=== PATIENT | female | born 1990 | race Caucasian/White ===

== ENCOUNTER → 2021-02-21 07:59 | Outpatient (BNVA) | payer BC, SELFPAY | PROVIDERS: Family Provider Family Medicine; PCP Family Medicine; Visit Provider Obstetrics & Gynecology | DX: Z30.2 Encounter for sterilization (principal); Z20.822 Contact with and (suspected) exposure to COVID-19 | CPT/HCPCS: 87635 ==

== ENCOUNTER 2021-02-27 07:13 | Day surgery (SDC) | payer BC, SELFPAY ==
[2021-02-26 12:46] VITALS: BMI 21.6
[2021-02-26 12:53] VITALS: BMI 45.6
[2021-02-27] VITALS (8 sets, daily range): BP systolic 119–165; BP diastolic 54–100; PULSE 80–100; RESP 13–22; TEMP 36.1–36.9; O2SAT 96–99
[2021-02-27] MEDS: sodium chloride 0.9% 500 ML IV (07:46)
[2021-02-27] MEDS: scopolamine 1.5 Patch 1 PATCH TRANSDERMA (07:49)
[2021-02-27 08:04] LABS: Basophils % 0.3 %; Eosinophils % 0.5 %; Hematocrit 39.3 % (37.0-47.0); Hemoglobin 12.7 g/dL (11.5-15.3); Lymphocytes # 1.6 10^3/uL (0.8-4.8); Lymphocytes % 26.1 %; Mean Corpuscular HGB Conc 32.3 g/dL (30.0-36.0); Mean Corpuscular Hemoglobin 26.2 pg (28.0-34.0); Mean Corpuscular Volume 81.2 fL (81-99); Mean Platelet Volume 10.8 fL (7.4-10.4); Monocytes # 0.6 10^3/uL (0.2-0.9); Monocytes % 9.1 %; Neutrophils # 3.99 10^3/uL (1.8-7.7); Neutrophils % 63.8 %; Nucleated Red Blood Cells % 0 %; Platelet Count 284 10^3/cmm (130-400); Red Blood Count 4.84 10^6/uL (4.1-5.3); Red Cell Distribution Width 13.5 % (12.1-15.1); White Blood Count 6.3 10^3/uL (4.0-10.0)
--- NOTE | 2021-02-27 08:10 | P.ANESASSM_ITS ---
Pre-Anesthetic Assessment Pre-Anesthetic Assessment: Height/Weight: Height 1.73 m Weight 136.078 kg Temp Pulse Resp BP Pulse Ox 97.1 F L 90 18 164/100 99 02/27/21 07:27 02/27/21 07:27 02/27/21 07:27 02/27/21 07:27 02/27/21 07:27 Preop Diagnosis: Desire permanent sterilization Proposed Procedure: Operation Date: 02/27/21 08:45 Proposed Procedures p Laparoscopic bilateral Salpingectomy 54900 z30.2(Bilateral) - Angelo Waldrop MD Familial anesthetic complications: None Was Beta Alexandra taken within 24 hours: N/A Was Clonidine taken within 24 hours: N/A Last intake: Intake Last Liquid Date 03/13/21 Last Liquid Time 21:30 Last Solid Date 02/26/21 Last Solid Time 18:30 Social: Social History: No alcohol and No tobacco Exam: Pre-Anes Outpt Exam: alert, oriented x 3, clear to auscultation bilat erally and regular rate & rhythm Airway: Cervical ROM: WNL MP: 4 Dentition: Other (2 missing) A dditional comments: small mouth Metabolic: Metabolic: Morbid obesity Anesthetic Plan: ASA status: 1 Anesthesia: General Risk of > 500 ml blood loss (7ml/kg in children): No Meds/Allergies Current Medications: Current Medications Generic Name Dose Route Start Last Admin Trade Name Freq PRN Reason Stop Dose Admin Sodium Chloride 500 mls @ 500 mls /hr 02/27/21 07:18 02/27/21 07:46 Sodium Chloride 0.9% IV 02/27/21 08:17 500 mls/hr ONCE ONE Administration PFSH Anesthesia PFSH: Family History (Updated 01/15/21 @ 07:59 by Chandni Contreras RN) Family/Other Diabetes maternal uncle Father Hypertension Grandfather Colon cancer maternal, 60's Denies family history of Ovarian cancer Clotting disorder Heart disease Hyperlipidemia Breast cancer Anesthesia complication Bleeding disorder Uterine cancer Thyroid condition Stroke Social History (Updated 02/25/21 @ 07:53 by Corin Ku) Smoking and tobacco status: never smoked Alcohol intake: never Data Anesthesia CBC & Chem 7: 02/27/21 07:48 02/27/21 07:48 Other Labs: Laboratory Results - last 48 hr 02/27/21 07:48 WBC 6.3 RBC 4.84 Hgb 12.7 Hct 39.3 MCV 81.2 MCH 26.2 L MCHC 32.3 RDW 13.5 Plt Count 284 MPV 10.8 H Neut % (Auto) 63.8 Lymph % (Auto) 26.1 [place] % (Auto) 9.1 Eos % (Auto) 0.5 Baso % (Auto) 0.3 Neut # (Auto) 3.99 Lymph # (Auto) 1.6 [place] # (Auto) 0.6 Eos # (Auto) 0.0 Baso # (Auto) 0.0 Nucleated RBC % (auto) 0 Nucleated RBCs # 0.0 Cardiac Studies: No Data to Display
--- NOTE | 2021-02-27 08:17 | W.PM.OPSUD ---
Surgery/Procedure H&P Update DATE OF PROCEDURE: February 27, 2021 DATE H&P PERFORMED: 02/25/21 H&P UPDATE INFORMATION: I have reviewed H&P completed within last 30 days, I have examined patient prior to procedure and No changes to prior documentation PREOP DIAGNOSIS: Desire permanent sterilization PLANNED PROCEDURE: Operation Date: 02/27/21 08:45 Proposed Procedures p Laparoscopic bilateral Salpingectomy 80314 z30.2(Bilateral) - Angelo Waldrop MD
[2021-02-27 08:20] LABS: Anion Gap 14.1 (5-19); Blood Urea Nitrogen 8 mg/dL (6-20); Carbon Dioxide 24 mmol/L (22-29); Chloride 104 mmol/L (98-107); Glomerular Filtration Rate 118.2 mL/min (90-130); Glucose 109 mg/dL (65-115); Osmolality Calculated 285 mOsm/kg (285-295); Potassium 4.1 mmol/L (3.5-5.1); Sodium 138 mmol/L (136-145)
[2021-02-27 08:22] LABS: OR HCG Qualitative Urine Negative (Negative)
[2021-02-27 09:07] LABS: Add Urine Microscopic? NO; Charge for UA Resulting for Rev
[2021-02-27 09:57] LABS: Bilirubin Urine Neg (Negative); Blood Urine Neg (Negative); Glucose Urine UA Norm (Normal); Ketones Urine Negative (Negative); Leukocyte Esterase Urine Negative (Negative); Nitrate Urine Negative (Negative); Protein Urine Neg (Negative); Sulfosalicylic Acid Urine Negative (Negative); Urine Appearance Clear (CLEAR); Urine Color Yellow (Yellow); Urobilinogen Urine Norm (Negative); pH Urine 8 (5-7)
--- NOTE | 2021-02-27 10:02 | PM.OP ---
Operative Report Date of procedure: February 27, 2021 Pre-op Diagnosis: Desire permanent sterilization Post-op diagnosis: same Procedure Done: Laparoscopic bilateral salpingectomy. Implants: None Specimens removed/disposition: left and right fallopian tubes Pathology: Left and right fallopian tubes Surgeon: Angelo Waldrop MD Estimated blood loss (mL): 5 IV fluids (mL): 900 Urine output (mL): 100 Complications: None Condition: stable Disposition: PACU Brief History: 30-year-old female desires permanent sterilization Procedure: After informed consent, the patient was taken to the operating room where general anesthesia was administered. She was placed in the dorsal lithotomy position and prepped and draped in sterile fashion. Pre-Procedure Time-Out verifying the correct patient identity, correct procedure verified with consent, correct site and side, correct patient position, availability of correct implants and any special equipment or requirements was performed and acknowledge by the OR team. The patient was examined under anesthesia and found to have a normal uterus with normal adnexa. A weighted speculum was placed in the vagina, and the anterior lip of cervix was grasped with the single toothed tenaculum. A uterine manipulator was advanced into the endocervical canal and uterus. The tenaculum was removed after uterine manipulator was secured. The speculum was removed from the vagina. An intraumbilical incision was made with a scalpel. While tenting up on the abdomen, a Verres needle was admitted into the intra-abdominal cavity. A saline drop test was performed and noted to be within normal limits. But pneumoperitoneum was not attained and an extra long octiview trocar was used to attained a pneumoperitoneum with 4 liters of carbon dioxide. The extralong 5 mm Opitc view trocar and sleeve were admitted into the abdomen and laparoscopic confirmation of location was achieved. A second incision was made 3 cm above the symphysis pubis, and a 5 mm trocar sleeves were admitted into the abdomen under direct laparoscopic visualization without complication. A survey revealed normal abdominal anatomy with the exception of string adhesion to the right lower anterior abdominal wall. A 5 mm blunt probe was advanced through the second trocar sleeve, and light manipulation of ovaries and uterus to assess the posterior aspects was performed. The pelvic survey shows normal uterus, left and right adnexa. The left ovary was noted with a follicular cyst. The string adhesion was fulgurated and transected with good hemostasis with the Voyant. The patient was placed into Trendelenburg position. The fallopian tubes were inspected bilaterally and the fimbriated ends of the fallopian tubes were visualized bilaterally. Attention was then directed to the right side. The fallopian tube and mesosalpinx were grasped and the underlying mesosalpinx was cauterized and cut using the Voyant device. Serial cauterization and cutting was used to separate the fallopian tube from the underlying mesosalpinx until it could be amputated cutting it approximated 2 cm from the cornua. Attention was then turned to the contralateral fallopian tube, which was removed in similar fashion. Both specimens were removed through the trocar and sent to pathology. But right tube specimen was trap in the adipose tissue was it got trap in the trocar and the in adipose tissue while pulling the trocar the suprapubic trocar incision was extended to withdraw the right fallopian tube from adipose tissue. Then the instruments were removed. The suprapubic trocar port was removed under direct visualization insuring good .hemostasis. The carbon dioxide was allowed to escape from the abdomen. The intraumbilical trocar sleeve was withdrawn under visualization with laparoscope in the sleeve to insure hemostasis. The skin incisions were closed with 3-O Monocryl subcuticular stich and Dermabond. The instruments were removed from the vagina, and excellent hemostasis was noted. The patient tolerated the procedure well, and sponge, lap and needle count were correct times two. The patient was taken to the recovery room in good condition.
[2021-02-27] MEDS: HYDROcodone-acetaminophen 5-325 mg Tablet 1 TAB PO (11:12)
--- NOTE | 2021-02-27 16:25 | ANE.PACU2 ---
Inpatient post-anesthesia follow up: Airway intact: Yes Vital signs: Temperature 98.4 F Pulse Rate 100 Respiratory Rate 18 Blood Pressure 161/91 Pulse Oximetry 98 Oxygen Delivery Me thod Room Air Oxygen Flow Rate 8 Fraction of Inspir ed Oxygen Hydration adequate: Yes Nausea and vomiting: No Pain level: 2 Mental status: Baseline
== END 2021-02-27 11:48 | disposition home or self-care (01) ==
PROVIDERS: PCP Family Medicine; Visit Provider Obstetrics & Gynecology
PROC: (CPT 58661; principal; 2021-02-27 08:45)
DX: Z30.2 Encounter for sterilization (principal); E66.01 Morbid (severe) obesity due to excess calories; Z68.42 Body mass index [BMI] 45.0-49.9, adult; Z82.49 Family history of ischemic heart disease and other diseases of the circulatory system; Z83.3 Family history of diabetes mellitus
CPT/HCPCS: 58661; 36415; 80048; 81003; 81025; 84703; 85025; 86850; 86900; 88302; 96365; J0360; J0690; J1100; J1200; J1885; J2250; J2405; J2704; J2710; J3010; J3490; J7040

== ENCOUNTER 2024-01-13 07:26 | Emergency (ER) | payer BC, SELFPAY ==
--- NOTE | 2024-01-13 07:34 | CTR_ITS ---
PROCEDURE INFORMATION: Exam: CT Head Without Contrast Exam date and time: 01/13/2024 7:36 AM Age: 33 years old Clinical indication: Stroke-like symptoms; Left facial droop; Additional info: Symptoms of acute stroke TECHNIQUE: Imaging protocol: Computed tomography of the head without contrast. Radiation optimization: All CT scans at this facility use at least one of these dose optimization techniques: automated exposure control; mA and/or kV adjustment per patient size (includes targeted exams where dose is matched to clinical indication); or iterative reconstruction. Other technique: STROKE PROTOCOL was implemented. COMPARISON: No relevant prior studies available. RADIATION DOSE METRICS: Total DLP (mGy-cm): 1068.23 FINDINGS: Brain: Normal. No hemorrhage. Unremarkable white matter. No mass effect. Cerebral ventricles: No ventriculomegaly. Paranasal sinuses: Visualized sinuses are unremarkable. No fluid levels. Mastoid air cells: Visualized mastoid air cells are well aerated. Bones: Unremarkable. No acute fracture. Soft tissues: Unremarkable. CT/CT head thrombolytic 76760 IMPRESSION: No acute intracranial abnormality. ASSESSMENT: ASPECTS ([place] Stroke Program Early CT Score) is 10. .
--- NOTE | 2024-01-13 07:34 | ECG_ITS ---
[facility] Test Date: 2024-01-13 Pat Name: Osiris Pisano Department: Room: Gender: Female [employer]pper: : 1990 Requested By: Eddie Gutierrez Order Number: [id number] Tadeo MD: Jamal Waddell M.D. Measurements Intervals [place] Rate: 85 P: 34 NE: 154 QRS: 44 QRSD: 92 T: 34 QT: 330 QTc: 394 Interpretive Statements SINUS RHYTHM No previous ECG available for comparison Electronically Signed On 01-15-2024 13:26:59 CDT by Jamal Waddell M.D. [email or web address]
[2024-01-13 07:36] LABS: Glucose Point of Care 119 mg/dL (70-110)
--- NOTE | 2024-01-13 07:36 | ED_ITS ---
HPI - Neuro Symptoms/Deficit 2 General: Chief Complaint: Weakness Stated Complaint: left side facial numbness Time Seen by Provider: 01/13/24 07:34 Source: patient Mode of arrival: ambulatory History of Present Illness: 33-year-old female presents emergency ro om with complaint of left-sided facial droop. She noticed it this morning. She has also had accompanying left ear pain abnormal sensation and taste which she isolates to the left side of her tongue difficulty closing her left eye with excessive tearing. She has no other symptoms. Her stroke score based on the presenting symptoms is to. No history of previous neurologic events no history of strokes. She does not have a migrainous like headache. No recent head trauma she is not on any anticoagulants. Onset (ago): hour(s) Location: left face History of same: Yes Severity: mild Associated symptoms: Deny chest pain Review of Systems 2 Const: Denies: fever(s) or chills Card: Denies: chest pain Resp: Denies: dyspnea GI: Denies: abdominal pain : Denies: dysuria, urinary frequency or urinary urgency Musc: Denies: neck pain or back pain Skin/Breast: Denies: rash PFSH ED 2 PFSH: Surgical History S/P cholecystectomy 2012- Dr. Mahoney at [facility] [place] [facility] [place] Family History Family/Other Diabetes maternal uncle Father Hypertension Grandfather Colon cancer maternal, 60's Denies family history of Ovarian cancer Clotting disorder Heart disease Hyperlipidemia Breast cancer Anesthesia complication Bleeding disorder Uterine cancer Thyroid disease Stroke Social History Smoking and tobacco/nicotine status: never used tobacco/nicotine Alcohol intake: never Substance/Drug Use: never NIH stroke score 2 NIHSS: Level Of Consciousness - 1a: 0 Level Of Consciousness Questions - 1b: Both Correct Level Of Consciousness Commands - 1c: Both Correct Best Gaze - 2: Normal Visual Jensen - 3: No Visual Loss Facial Palsy - 4: Minor Paralysis Motor Arm Right - 5: No Drift Motor Arm Left - 5: No Drift M otor Leg Right - 6: No Drift Motor Leg Left - 6: No Drift Limb Ataxia - 7: Absent Sensory - 8: Mild To Moderate Loss Best Language - 9: No Aphasia Dysarthia - 10: Normal Extinction And Inattention - 11: 0 Score: Total Score: 2 Physical Exam 2 Const: COMMON NORMALS: no acute distress GENERAL APPEARANCE: cooperative and comfortable ORIENTATION/CONSCIOUSNESS: Yes awake, Yes oriented to person, Yes oriented to place and Yes oriented to time HENMT: COMMON NORMALS: normocephalic, atraumatic and hearing grossly normal bilaterally HEAD & SCALP: normocephalic and atraumatic Resp: COMMON NORMALS: normal respiratory effort, No retractions, No use of accessory muscles and clear to auscultation bilaterally AUSCULTATION: clear to auscultation bilaterally Cardio: COMMON NORMALS: regular rate, regular rhythm and No murmurs present (Cardio) RATE: regular rate RHYTHM: regular rhythm GI: COMMON NORMALS: Soft to palpation and No hepatosplenomegaly present A USCULTATION: Yes normoactive bowel sounds PALPATION: Yes Soft to palpation, No Tenderness to palpation present (GI), No Guarding due to palpation present (GI) and Yes No hepatosplenomegaly present Extremity: COMMON NORMALS: normal to inspection, capillary refill normal, no clubbing, cyanosis or edema, no calf tenderness and no pedal edema Neuro: SENSORIUM/ORIENTATION: Yes oriented to person, Yes oriented to place and Yes oriented to time Skin: COMMON NORMALS: no rashes or lesions noted GENERAL SKIN EXAM: no rashes or lesions noted Course 2 Vital Signs: Vital signs: Vital Signs Temperature 98.2 F 01/13/24 08:07 Pulse Rate 81 01/13/24 07:37 Blood Pressure 200/120 01/13/24 07:37 Pulse Oximetry 97 01/13/24 07:37 MDM - Neuro Symptoms/Deficit Medical Decision Making On exam 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 No other focal neurologic deficits noted reviewed findings with her and the cause of these. Discussed Dr. Crane she concurs as well as start patient on prednisone follow-up with neurology for her Mckinney's palsy Medical Records I reviewed the patient's medical records. Lab Data I reviewed the patient's lab results. 01/13/24 07:36 01/13/24 07:[address] 01/13/24 07:34 IMPRESSION: No acute intracranial abnormality. ASSESSMENT: ASPECTS ([place] Stroke Program Early CT Score) is 10. . Laboratory Results WBC 7.61 10^3/uL (3.29-11.43) 01/13/24 07:36 RBC 5.08 10^6/uL (3.85-5.65) 01/13/24 07:36 Hgb 13.40 g/dL (11.27-16.99) 01/13/24 07:36 Hct 41.0 % (36-47) 01/13/24 07:36 MCV 80.7 fl (85-98) L 01/13/24 07:36 MCH 26.4 pg (27-33) L 01/13/24 07:36 MCHC 32.7 g/dL (30-55) 01/13/24 07:36 RDW 13.1 % (12.1-15.1) 01/13/24 07:36 Plt Count 336 10^3/cmm (157-399) 01/13/24 07:36 MPV 10.1 fL (7.4-10.4) 01/13/24 07:36 Neut % (Auto) 57.8 % 01/13/24 07:36 Lymph % (Auto) 32.1 % 01/13/24 07:36 Ray % (Auto) 8.5 % 01/13/24 07:36 Eos % (Auto) 0.9 % 01/13/24 07:36 Baso % (Auto) 0.4 % 01/13/24 07:36 Neut # (Auto) 4.40 10^3/uL (1.8-7.7) 01/13/24 07:36 Lymph # (Auto) 2.4 10^3/uL (0.8-4.8) 01/13/24 07:36 Ray # (Auto) 0.7 10^3/uL (0.2-0.9) 01/13/24 07:36 Eos # (Auto) 0.1 10^3/uL (0.0-0.8) 01/13/24 07:36 Baso # (Auto) 0.0 10^3/uL (0.0-0.1) 01/13/24 07:36 Nucleated RBC % (auto) 0 % 01/13/24 07:36 Nucleated RBCs # 0.0 /100WBC 01/13/24 07:36 PT 13.40 SECONDS (12.1-14.9) 01/13/24 07:36 INR 0.99 (0.8-1.2) 01/13/24 07:36 APTT 28.7 SECONDS (23.9-36.7) 01/13/24 07:36 Sodium 138 mmol/L (136-145) 01/13/24 07:36 Potassium 4.2 mmol/L (3.5-5.1) 01/13/24 07:36 Chloride 102 mmol/L (98-107) 01/13/24 07:36 Carbon Dioxide 24 mmol/L (22-29) 01/13/24 07:36 Anion Gap 16.2 (5-19) 01/13/24 07:36 BUN 11 mg/dL (6-20) 01/13/24 07:36 Creatinine 0.6 mg/dL (0.5-0.9) 01/13/24 07:36 GFR Calculation 115.9 mL/min (90-130) 01/13/24 07:36 Glucose 124 mg/dL (65-115) H 01/13/24 07:36 POC Glucose 119 mg/dL (70-110) H 01/13/24 07:34 Calculated Osmolality 287 mOsm/kg (285-295) 01/13/24 07:36 Calcium 9.3 mg/dL (8.5-10.5) 01/13/24 07:36 Total Bilirubin 0.4 mg/dL (0.15-1.2) 01/13/24 07:36 AST 11 U/L (0-32) 01/13/24 07:36 ALT 7 U/L (0-33) 01/13/24 07:36 Alkaline Phosphatase 99 U/L (35-105) 01/13/24 07:36 Total Protein 7.7 g/dL (6.6-8.7) 01/13/24 07:36 Albumin 4.2 g/dL (3.5-5.2) 01/13/24 07:36 Globulin 3.5 g/dL (1.3-4.6) 01/13/24 07:36 Urine Color Yellow (Yellow) 01/13/24 08:45 Urine Appearance Cloudy (CLEAR) A 01/13/24 08:45 Urine pH 7 (5-7) 01/13/24 08:45 Ur Specific [place] 1.010 (1.005-1.030) 01/13/24 08:45 Urine Protein Neg (Negative) 01/13/24 08:45 Urine Glucose (UA) Norm (Normal) 01/13/24 08:45 Urine Ketones Negative (Negative) 01/13/24 08:45 Urine Blood Neg (Negative) 01/13/24 08:45 Urine Nitrate Negative (Negative) 01/13/24 08:45 Urine Bilirubin Neg (Negative) 01/13/24 08:45 Urine Urobilinogen Norm mg/dL (Negative) 01/13/24 08:45 Ur Leukocyte Esterase 2+ (Negative) H 01/13/24 08:45 Urine RBC 0-4 /hpf (0-2) H 01/13/24 08:45 Urine WBC 25-40 /hpf (0-5) H 01/13/24 08:45 Ur Squamous Epith Cells 5-10 /hpf (0-5) H 01/13/24 08:45 Amorphous Sediment Not Reportable 01/13/24 08:45 Urine Bacteria 1+ /hpf (NONE) H 01/13/24 08:45 Urine Opiates Screen Negative ng/mL (Negative) 01/13/24 08:45 Ur Barbiturates Screen Negative ng/mL (Negative) 01/13/24 08:45 Ur Phencyclidine Scrn Negative ng/mL (Negative) 01/13/24 08:45 Ur Amphetamines Screen Negative ng/mL (Negative) 01/13/24 08:45 U Benzodiazepines Scrn Negative ng/mL (Negative) 01/13/24 08:45 Urine Cocaine Screen Negative ng/mL (Negative) 01/13/24 08:45 U Marijuana (THC) Screen Negative ng/mL (Negative) 01/13/24 08:45 All radiology interpretation(s) finalized by discharge Discharge Plan Discharge Patient Disposition: Home Clinical Impression: Mckinney's palsy Condition: Stable Prescriptions: New prednisone 50 mg tablet 50 mg PO DAILY 7 Days Qty: 7 0RF No Action fluconazole [Diflucan] 150 mg tablet 150 mg PO DAILY Qty: 1 0RF acetaminophen 325 mg capsule 325 mg PO Q4H PRN (Reason: fever or pain) Qty: 60 0RF hydrocodone-acetaminophen 5-325 mg tablet 1 tab PO Q4H PRN (Reason: pain) Qty: 20 0RF Discharge Orders: Discharge ED (Routine); Ordered 01/13/24 Ordered By: Eddie Coy Referrals: Dheeraj Lancaster MD [Primary Care Provider] - Discharge Diet: Usual diet Discharge Activity: Resume usual activity Patient Instructions: Mckinney Palsy (ED), Opioid Safety, Pain Management Activity Restrictions/Additional Instructions: Thank you for choosing [facility] for your healthcare needs today. It is very important that you follow up as instructed or that you return to the Emergency Department should you have concerns or if your condition changes or worsens in any way. You were seen today for complaint of left-sided facial weakness CT of your head was negative. Your presenting symptoms are consistent with a Mckinney's palsy. This is a facial nerve root irritation. The symptoms may worsen for period of time these often will overtime resolve. Recommend steroids once daily starting tomorrow for 7 days shelter case manager will make arrangements for you to follow-up with neurology. Coding Level of Care Code ED Bead Wrapper for Yelena Dockery
[2024-01-13 07:37] VITALS: BP 200/120; PULSE 81; O2SAT 97
[2024-01-13 07:42] LABS: Basophils % 0.4 %; Eosinophils # 0.1 10^3/uL (0.0-0.8); Eosinophils % 0.9 %; Lymphocytes # 2.4 10^3/uL (0.8-4.8); Lymphocytes % 32.1 %; Mean Corpuscular HGB Conc 32.7 g/dL (30-55); Mean Corpuscular Hemoglobin 26.4 pg (27-33); Mean Corpuscular Volume 80.7 fl (85-98); Mean Platelet Volume 10.1 fL (7.4-10.4); Monocytes # 0.7 10^3/uL (0.2-0.9); Monocytes % 8.5 %; Neutrophils % 57.8 %; Nucleated Red Blood Cells % 0 %; Platelet Count 336 10^3/cmm (157-399); Red Blood Count 5.08 10^6/uL (3.85-5.65); Red Cell Distribution Width 13.1 % (12.1-15.1); White Blood Count 7.61 10^3/uL (3.29-11.43)
[2024-01-13 08:00] LABS: Alanine Aminotransferase 7 U/L (0-33); Albumin Level 4.2 g/dL (3.5-5.2); Alkaline Phosphatase 99 U/L (35-105); Aspartate Amino Transferase 11 U/L (0-32); Blood Urea Nitrogen 11 mg/dL (6-20); Calcium 9.3 mg/dL (8.5-10.5); Carbon Dioxide 24 mmol/L (22-29); Chloride 102 mmol/L (98-107); Globulin 3.5 g/dL (1.3-4.6); Glomerular Filtration Rate 115.9 mL/min (90-130); Glucose 124 mg/dL (65-115); Osmolality Calculated 287 mOsm/kg (285-295); Sodium 138 mmol/L (136-145); Total Bilirubin 0.4 mg/dL (0.15-1.2); Total Protein 7.7 g/dL (6.6-8.7)
[2024-01-13 08:05] LABS: INR 0.99 (0.8-1.2)
[2024-01-13 08:06] LABS: Partial Thromboplastin Time 28.7 SECONDS (23.9-36.7)
[2024-01-13 08:07] VITALS: TEMP 36.8
[2024-01-13 08:10] LABS: Anion Gap 16.2 (5-19); Potassium 4.2 mmol/L (3.5-5.1)
[2024-01-13] MEDS: dexamethasone 10 mg/mL INJ IVP (08:14)
[2024-01-13 09:34] LABS: Amphetamines Screen Urine Negative (Negative); Barbiturates Screen Urine Negative (Negative); Benzodiazepines Screen Urine Negative (Negative); Cocaine Screen Urine Negative (Negative); Opiate Screen Urine Negative (Negative); PCP Screen Urine Negative (Negative); THC Screen Urine Negative (Negative)
[2024-01-13 09:41] LABS: Add Urine Culture? Yes; Add Urine Microscopic? YES; Bacteria Urine 1+ /hpf; Bilirubin Urine Neg (Negative); Blood Urine Neg (Negative); Glucose Urine UA Norm (Normal); Ketones Urine Negative (Negative); Leukocyte Esterase Urine 2+ (Negative); Nitrate Urine Negative (Negative); Protein Urine Neg (Negative); RBC Urine 0-4 /hpf (0-2); Urine Appearance Cloudy (CLEAR); Urine Color Yellow (Yellow); Urobilinogen Urine Norm (Negative); WBC Urine 25-40 /hpf (0-5); pH Urine 7 (5-7)
--- NOTE | 2024-01-14 08:26 | DCPLANNER ---
message sent to neuro for er f/u
== END 2024-01-13 09:10 | disposition home or self-care (01) ==
PROVIDERS: Emergency Provider Family Medicine; PCP Family Medicine
DX: G51.0 Bell's palsy (principal)
CPT/HCPCS: 36416; 70450; 80053; 80306; 81001; 82962; 85025; 85610; 85730; 87086; 93005; 96374; 99285; J1100